=== PATIENT | male | born 1960 | race Asian ===

== ENCOUNTER 2023-02-20 05:51 | Outpatient (CLI) | payer MEDICARE, MEDICAID | END 2023-02-20 05:52 | disposition critical access hospital (66) | LOC: EMS 05:51 | DX: R10.9 Unspecified abdominal pain (principal); R11.0 Nausea | CPT/HCPCS: A0425; A0429 ==

== ENCOUNTER 2023-02-20 06:31 | Emergency (ER) | payer MEDICARE, MEDICAID ==
--- NOTE | 2023-02-20 07:50 | ED Physician Documentation ---
PD HPI ABD PAIN - Stated complaint Stated Complaint: R SIDE ABD PX - Chief complaint Chief Complaint: Abd Pain - History obtained from History obtained from: Patient - History of Present Illness Timing - onset: How many days ago (5) Timing - duration: Days (5) Timing - details: Abrupt onset, Still present, Waxing and waning, Still present in ED Quality: Cramping, Aching, Fullness/distended Location: RUQ (he has had pain and tenderness with firm feeling right mid to upper abd in area of and above his colostomy. Has had the colostomy for about 7 years without problems. Has had feeling of cramps/pain, with firmness around the ostomy intermittently for couple of weeks. Had this pain 5 days ago.), RLQ Radiation: No: Chest Improved by: Vomiting Worsened by: Eating Associated symptoms: Nausea, Vomiting, Loss of appetite, Other (has had less to minimal output of ostomy the past 5 days. Has been urinating less but still output daily.). No: Fever, Near syncope / syncope Similar symptoms before: Has not had sx before Review of Systems Constitutional: denies: Fever Nose: denies: Rhinorrhea / runny nose, Congestion Throat: denies: Sore throat Cardiac: denies: Chest pain / pressure Respiratory: denies: Cough GI: reports: Abdominal Pain, Nausea, Vomiting. denies: Diarrhea, Hematemesis (but is bilious) PD PAST MEDICAL HISTORY - Past Medical History Respiratory: COPD Endocrine/Autoimmune: Type 2 diabetes GI: Other (has colostomy due to abd colon surgery with poor healing of abd wound and required large reconstructive surgery and mesh in abdomen. ) - Past Surgical History Past Surgical History: Yes General: Bowel surgery - Present Medications Home Medications: Ambulatory Orders Medication Instructions Recorded Confirmed Ondansetron Odt [Zofran] 4 mg TL Q6H PRN #30 tablet 02/20/23 - Allergies Allergies/Adverse Reactions: Allergies Allergy/AdvReac Type Severity Reaction Status Date / Time No Known Drug Allergies Allergy Verified 02/20/23 06:44 - Social History Does the pt smoke?: No Smoking Status: Former smoker Does the pt drink ETOH?: No Does the pt have substance abuse?: Yes Substance Use and Type: Marijuana - Immunizations Immunizations are current?: Yes - POLST Patient has POLST: No PD ED PE NORMAL - Vitals Vital signs reviewed: Yes - General General: Alert and oriented X 3, Well developed/nourished, Other (large BMI) - Neck Neck: Supple, no meningeal sign, No adenopathy - Cardiac Cardiac: No murmur. No: RRR (tachycardic but regular) - Respiratory Respiratory: Clear bilaterally - Abdomen Abdomen: Soft, Other (ostomy right mid to lower abd. No output from it in the bag currently. There is large scar mid abd about 10 cm diameter. There is lumpy areas in pnanus diffusely. there is tender firm area above the ostomy concerning for hernia with incarceration. ) Results - Vitals Vitals: Vital Signs - 24 hr 02/20/23 02/20/23 02/20/23 06:40 07:18 09:00 Temperature 35.3 C L 36.5 C Heart Rate 100 105 H 102 H Respiratory 19 20 18 Rate Blood Pressure 116/85 H 107/74 140/90 H O2 Saturation 94 95 100 If not protocol : Oxygen Flow, liters/minute 02/20/23 02/20/23 02/20/23 11:00 13:00 16:28 Temperature 36.5 C Heart Rate 103 H 100 105 H Respiratory 20 18 16 Rate Blood Pressure 150/100 H 110/60 126/72 O2 Saturation 93 94 93 If not protocol 2 : Oxygen Flow, liters/minute Oxygen O2 Source Room air - Labs Labs: Laboratory Tests 02/20/23 02/20/23 08:10 08:36 WBC 11.7 H RBC 5.33 Hgb 16.7 Hct 49.2 MCV 92.3 MCH 31.3 H MCHC 33.9 RDW 12.6 Plt Count 253 MPV 9.7 Neut # (Auto) 9.7 H Lymph # (Auto) 1.3 L [place] # (Auto) 0.7 Eos # (Auto) 0.0 Baso # (Auto) 0.1 Absolute Nucleated RBC 0.00 Nucleated RBC % 0.0 Sodium 130 L Potassium 3.4 L Chloride 84 L Carbon Dioxide 32 Anion Gap 14.0 H BUN 21 H Creatinine 1.0 Estimated GFR (MDRD) 75 L Glucose 244 H Calcium 9.5 Total Bilirubin 2.3 H AST 31 ALT 31 Alkaline Phosphatase 83 Total Protein 8.3 H Albumin 4.0 Globulin 4.3 H Albumin/Globulin Ratio 0.9 L Lipase 41 - Rads (name of study) abd/pelvic CT Relevant Findings:: Prelim report reviewed, EMP independent interpretation of test (apparent Sbo with distended small bowel and stomach. A/F levels. There is hernia above the ostmy that appears entrapped with airfluid levels. No inflammation per se. ), See rad report PD Medical Decision Making - ED course Complexity details: reviewed results (Appearrs incarcerated hernia with SBO. He has significant scarring and it sounds like it has been incarcerated with sbo for 5 days. I felt surgical consult appropriate. ), considered differential (large abdomen with significant scarring and colostomy that has pain and vomiting. Got CT to evaluate for causes that might lead to tense hernia, versus incarcerated hernia primarily with Sbo. ), d/w patient, d/w [employer] consultant (Dr. fontaine came to er to evaluate and manually reduced the hernia and the patient was feeling improved symptoms. He was watched for another 2-3 hours at direction of Dr. fontaine to ensure feeling better and taking po intake. ) Reviewed Lab Results: labs are fairly good with lytes (just low K at 3.2) and renal function, cBC. CT abd showing incarcerated hernia paraostomy, with SBO resultant. Social Determinants of Health: recently moved to [facility] so will need to start with getting primary care and then referrals for hernia repair, as this sounds like it has been recurrent in [place]. Might also be able to get referral from general surgery, or might know a good specialist. dr. fontaine did not have particular names. ED course: the patient continued to feel improved after reduction. he is able to drink fluids without nausea/pain. He is new to the area so will need primary care initially with then referral for Plastics/Surgery at larger facility per Dr. fontaine, due to the extensive healing that will be needed. For the current time, the hernia is reduced and has relieved the SBO symptoms. Has some output starting in ostomy. There will not be much out right now as has been without food intake for 5 days. Departure - Departure Disposition: 01 Home, Self Care Clinical Impression: Incarcerated ventral hernia, Small bowel obstruction Condition: Stable Record reviewed to determine appropriate education?: Yes Follow-Up: Roland Hardwick MD [Provider Admit Priv/Credential] - Dayton Hicks DO [Provider Admit Priv/Credential] - [facility] [place] [Provider Group] Prescriptions: Ondansetron Odt [Zofran] 4 mg TL Q6H PRN #30 tablet PRN Reason: Nausea / Vomiting Comments: The hernia that you have around the abdominal wall and near the ostomy had gotten trapped and was crimping the intestine causing a bowel obstruction. It seems to be improved at this time. Return if recurrent episode similar to that. Otherwise if you have the area of the hernia start to hurt or feel firm, gently massage it and laying in a face up position and see if it will reduce. Given the recurrence of the hernia symptoms, it does seem likely he may need some repair in the area. Given the prior scarring and mesh and surgeries, it will probably be more complicated and would be better done at a larger facility that has more specialized plastic surgery along with abdominal general surgery. As you are new to the area, it is likely you will need to start with primary care to get referrals onto more advanced. Potentially could get referrals from our general surgeons here to to a more specialized surgery. I provided names for some primary care clinics in the [facility], both [facility] and also the [facility] primary care. Call for follow-up as to the ER visit here and often they will see you in the shorter-term for follow- up of this and then subsequently new primary care appointments down the line. You could also consider calling and talking with the one of the surgeons and see if they might provide referral to more specialized areas such as or [facility] etc. Return to the ER if needed. Continue with your regular ostomy care. Discharge Date/Time: 02/20/23 16:45
[2023-02-20] MEDS ORDERED: HYDROmorphone 1 MG/ML CARPUJECT IVP STA (08:06)
[2023-02-20] MEDS ORDERED: DROPERIDOL 5 MG/2 ML VIAL IM STA (08:06)
[2023-02-20] MEDS ORDERED: ONDANSETRON 4 MG/2 ML VIAL IVP STA (08:06)
[2023-02-20 08:26] LABS: BASOPHILS # (AUTO) 0.1 10^3/uL (0.0-0.1); BASOPHILS % (AUTO) 0.4 %; EOSINOPHILS % (AUTO) 0.2 %; HCT - HEMATOCRIT 49.2 % (42.0-52.0); HGB - HEMOGLOBIN 16.7 g/dL (14.0-18.0); LYMPHOCYTES # (AUTO) 1.3 10^3/uL (1.5-3.5); LYMPHOCYTES % (AUTO) 10.8 %; MEAN CORPUSCULAR HEMOGLOBIN 31.3 pg (27.0-31.0); MEAN CORPUSCULAR HGB CONC 33.9 g/dL (32.0-36.0); MEAN CORPUSCULAR VOLUME 92.3 fL (80.0-94.0); MEAN PLATELET VOLUME 9.7 fL (7.4-11.4); MONOCYTES # (AUTO) 0.7 10^3/uL (0.0-1.0); MONOCYTES % (AUTO) 5.6 %; NEUTROPHILS # (AUTO) 9.7 10^3/uL (1.5-6.6); NEUTROPHILS % (AUTO) 82.5 %; PLT - PLATELET COUNT 253 10^3/uL (130-450); RED BLOOD COUNT 5.33 10^6/uL (4.70-6.10); RED CELL DISTRIBUTION WIDTH 12.6 % (12.0-15.0); WHITE BLOOD COUNT 11.7 x10^3/uL (4.8-10.8)
[2023-02-20 08:53] LABS: ALBUMIN/GLOBULIN RATIO 0.9 (1.0-2.2); BILIRUBIN,TOTAL 2.3 mg/dL (0.2-1.0); CALCIUM 9.5 mg/dL (8.5-10.3); POTASSIUM 3.4 mmol/L (3.5-5.0); TOTAL PROTEIN 8.3 g/dL (6.7-8.2)
[2023-02-20] MEDS ORDERED: iohexoL-300 100 ML VIAL ONE (09:18)
--- NOTE | 2023-02-20 10:53 | CT Report ---
PROCEDURE: ABDOMEN/PELVIS W INDICATIONS: abd distension/vomiting/ prior ostomy CONTRAST: 100ml Omnipaque 300 TECHNIQUE: After the administration of intravenous contrast, 5 mm thick sections acquired from the diaphragms to the symphysis. 5 mm thick coronal and sagittal reformats were acquired. For radiation dose reducti on, the following was used: automated exposure control, adjustment of mA and/or kV according to josé ent size. COMPARISON: None FINDINGS: Image quality: Excellent. Lung bases and heart: Subpleural cystic change in the right lung base without bronchitis. Liver: Hepatic steatosis. Gallbladder and biliary tree: Unremarkable. No biliary dilation. Spleen: Unremarkable. Pancreas: Unremarkable. Adrenals: Unremarkable. Kidneys and ureters: Unremarkable. Bowel and peritoneum: Significant bowel distention of the small bowel. There is a transition point ca used by a right lower quadrant ventral wall hernia (series 3, image 54); the neck of the hernia measu res 2.1 cm. Normal enhancement of the bowel. Colonic diverticulosis without evidence of diverticuliti s. No free fluid or free air. Right lower quadrant colostomy. Lymph nodes: No central or retroperitoneal adenopathy. Vessels: Unremarkable. PELVIS Reproductive organs: Unremarkable. Bladder: Unremarkable. Lymph nodes: Unremarkable. Bones: No aggressive osseous abnormality. Other: Multiple ventral wall hernias, including a left lower quadrant hernia containing a short segme nt of descending colon and a right lower quadrant parastomal hernia. IMPRESSION: High-grade bowel obstruction of the small bowel caused by a right lower quadrant hernia. No evidence of ischemia. Above discussed with Roland Mayer MD at time of dictation. Reviewed by: Drake Chen on 02/20/2023 10:51 AM PDT Approved by: Drake Chen on 02/20/2023 10:51 AM PDT Station ID: [id number]
[2023-02-20] MEDS ORDERED: DROPERIDOL 5 MG/2 ML VIAL IVP STA (12:28)
[2023-02-20] MEDS ORDERED: LACTATED RINGERS 1,000 ML IV STA (12:28)
--- NOTE | 2023-02-20 12:33 | CONSULTATION NOTE ---
Referring Provider Consult Date: 02/20/23 Chief Complaint - Chief Complaint Chief Complaint: n/v x several days History of Present Illness - History Obtained From Records Reviewed: yes History obtained from: pt Exam Limitations: none - History of Present Illness HPI Comment/Other: surgery 3.5 years ago matty no with right abdomen stoma. he states he nearly and had a prolonged recovery. he has occasional nausea and discomfort and bulge right abdomen. he often can massage the bulge in and feel better. this time he was worse and was seen in the ED. ct scan 2 incisional hernias with bowel and parastomal hernia with bowel. large bridge hernia repair with bowel under the skin. History - Past Medical History Respiratory: reports: COPD - Past Surgical History General: reports: Bowel surgery - POLST Patient has POLST: No Meds/Allgy - Allergies Allergies/Adverse Reactions: Allergies Allergy/AdvReac Type Severity Reaction Status Date / Time No Known Drug Allergies Allergy Verified 02/20/23 06:44 Review of Systems - Other Findings Other Findings: 10 pt ros as above otherwise unremarkable Exam - Vital Signs Reviewed Vital Signs: Yes Vital Signs: Vital Signs x48h Temp Pulse Resp BP Pulse Ox O2 Flow Rate 02/20/23 11:00 103 H 20 150/100 H 93 2 02/20/23 09:00 36.5 C 102 H 18 140/90 H 100 02/20/23 07:18 105 H 20 107/74 95 02/20/23 06:40 35.3 C L 100 19 116/85 H 94 - Physical Exam General Appearance: positive: No acute distress, Alert Eyes Bilateral: positive: PERRL, EOMI Neck: positive: No JVD, Trachea midline Respiratory: positive: No respiratory distress Cardiovascular: positive: Regular rate & rhythm Abdomen: positive: Non-tender, Other (right stoma. wide midline scar. left prior stoma site. hernia in this location reduce right abdomen herrnia cephalad of stoma reduced hernia around stoma is soft non tender) Neurologic/Psychiatric: positive: Oriented x3 Conclusion/Plan - Problem List (1) SBO (small bowel obstruction) Conclusion/Plan: 2 hernias are at least partially reduced. hopefully his bowel obstruction symptoms will now improve. if feeling better plan clears and home. recommend he see surgery. he is not a surgical candidate at [facility]. if not improving options transfer. if not possible to transfer and not improving repeat ct scan and additional trial to reduce the hernias - Lab Results Fish Bones: 02/20/23 08:10 02/20/23 08:36
[2023-02-20 16:29] VITALS: BP 126/72
[2023-02-20] MEDS ORDERED: iohexoL-300 100 ML VIAL IVP ONE (17:59)
== END 2023-02-20 16:45 | disposition home or self-care (01) ==
LOC: EDUNIT# → ED 06:31
DX: K43.6 Other and unspecified ventral hernia with obstruction, without gangrene (principal); K56.609 Unspecified intestinal obstruction, unspecified as to partial versus complete obstruction; E11.9 Type 2 diabetes mellitus without complications; Z93.3 Colostomy status; Z87.891 Personal history of nicotine dependence
CPT/HCPCS: 36415; 74177; 80053; 83690; 85025; 96372; 96374; 96375; 99284; J1170; J7120; Q9967; 83735

== ENCOUNTER 2023-02-26 11:50 | Outpatient (CLI) | payer MEDICARE, MEDICAID | END 2023-02-26 11:51 | disposition short-term general hospital (02) | LOC: EMS 11:50 | DX: R10.84 Generalized abdominal pain (principal); R10.817 Generalized abdominal tenderness; R11.2 Nausea with vomiting, unspecified; R14.0 Abdominal distension (gaseous) | CPT/HCPCS: A0425; A0429 ==

== ENCOUNTER 2023-03-26 09:34 | Outpatient (CLI) | payer MEDICARE, MEDICAID ==
[2023-03-26 14:58] LABS: BASOPHILS % (AUTO) 0.7 %; EOSINOPHILS # (AUTO) 0.3 10^3/uL (0.0-0.7); EOSINOPHILS % (AUTO) 4.9 %; HCT - HEMATOCRIT 43.9 % (42.0-52.0); HGB - HEMOGLOBIN 13.8 g/dL (14.0-18.0); LYMPHOCYTES # (AUTO) 2.2 10^3/uL (1.5-3.5); LYMPHOCYTES % (AUTO) 37.8 %; MEAN CORPUSCULAR HEMOGLOBIN 31.8 pg (27.0-31.0); MEAN CORPUSCULAR HGB CONC 31.4 g/dL (32.0-36.0); MEAN CORPUSCULAR VOLUME 101.2 fL (80.0-94.0); MEAN PLATELET VOLUME 10.4 fL (7.4-11.4); MONOCYTES # (AUTO) 0.3 10^3/uL (0.0-1.0); MONOCYTES % (AUTO) 5.9 %; NEUTROPHILS # (AUTO) 2.9 10^3/uL (1.5-6.6); NEUTROPHILS % (AUTO) 50.2 %; PLT - PLATELET COUNT 219 10^3/uL (130-450); RED BLOOD COUNT 4.34 10^6/uL (4.70-6.10); RED CELL DISTRIBUTION WIDTH 14.2 % (12.0-15.0); WHITE BLOOD COUNT 5.8 x10^3/uL (4.8-10.8)
[2023-03-26 15:21] LABS: ALBUMIN 3.4 g/dL (3.2-5.5); ALBUMIN/GLOBULIN RATIO 0.8 (1.0-2.2); BILIRUBIN,TOTAL 1.4 mg/dL (0.2-1.0); CALCIUM 8.6 mg/dL (8.5-10.3); CREATININE 0.7 mg/dL (0.6-1.2); POTASSIUM 3.8 mmol/L (3.5-5.0); TOTAL PROTEIN 7.6 g/dL (6.7-8.2)
[2023-03-26 15:39] LABS: THYROID STIMULATING HORMONE 1.89 uIU/mL (0.34-5.60)
[2023-03-26 20:42] LABS: ESTIMATED AVERAGE GLUCOSE 209 mg/dL (70-100); HEMOGLOBIN A1c% 8.9 % (4.27-6.07)
== END 2023-03-26 09:35 | disposition home or self-care (01) ==
LOC: LAB.S 09:34
PROVIDERS: ATTEND Registered Nurse
DX: E11.69 Type 2 diabetes mellitus with other specified complication (principal); Z79.899 Other long term (current) drug therapy; Z12.5 Encounter for screening for malignant neoplasm of prostate; Z13.29 Encounter for screening for other suspected endocrine disorder
CPT/HCPCS: 36415; 80053; 83036; 84443; 85025; G0103; 82043; 82570; 84153

== ENCOUNTER 2024-05-19 08:57 | Outpatient (CLI) | payer MEDICARE, MEDICAID ==
[2024-05-19 16:05] LABS: CALCIUM 9.6 mg/dL (8.5-10.3); CREATININE 0.8 mg/dL (0.6-1.3); POTASSIUM 4.2 mmol/L (3.5-4.5)
[2024-05-19 21:17] LABS: ESTIMATED AVERAGE GLUCOSE 154 mg/dL (70-100)
== END 2024-05-19 08:58 | disposition home or self-care (01) ==
LOC: LAB.S 08:57
PROVIDERS: ATTEND Registered Nurse
DX: E11.69 Type 2 diabetes mellitus with other specified complication (principal)
CPT/HCPCS: 36415; 80048; 83036